=== PATIENT | male | born 1945 | race Caucasian/White ===

== ENCOUNTER 2019-05-17 05:39 | Inpatient (IN) | payer MEDICARE, OTHER ==
[~2019-05-17] VITALS: Ht 177.8 cm; Wt 87.0 kg
[~2019-05-17 05:39] MED LIST: AMLO5TAB4 PO; ASPI-496 PO; ASPI-650 PO; ATOR40TA78 PO; CARV-39 PO; ESCI20TA PO; LOSA1TAB25 PO; METF500T17 PO; OMEP20TA62 PO
[2019-05-17] MEDS ORDERED: LACTATED RINGERS 1,000 ML IV SCH (06:40)
[2019-05-17 06:43] VITALS: BP 125/75
[2019-05-17] MEDS ORDERED: MIDAZOLAM 1 MG/ML, 2ML ONE (07:03)
[2019-05-17] MEDS ORDERED: FENTANYL PF 250 MCG/5ML ONE (07:03)
[2019-05-17] MEDS ORDERED: THROMBIN (RECOMBINANT) 5,000 UNIT VIAL TP ONE (07:08)
[2019-05-17] MEDS ORDERED: BUPIVACAINE/PF 0.5% ONE (07:08)
[2019-05-17] MEDS ORDERED: EPINEPHRINE 1 MG/ML, 1ML ONE ×2 (07:08→08:47)
[2019-05-17] MEDS ORDERED: BACITRACIN 50,000 UNIT ONE (07:09)
[2019-05-17] MEDS ORDERED: WATER-INJECTION,STERILE 10 ML IV ONE (08:47)
[2019-05-17] MEDS ORDERED: PROPOFOL 10 MG/ML, 20ML ONE (08:47)
[2019-05-17] MEDS ORDERED: ROCURONIUM 10MG/ML,5ML ONE (08:47)
[2019-05-17] MEDS ORDERED: VASOPRESSIN 20 UNIT/ML, 1ML ONE (08:47)
[2019-05-17] MEDS ORDERED: DEXAMETHASONE 4 MG/ML, 1ML ONE (08:47)
[2019-05-17] MEDS ORDERED: LIDOCAINE-MPF 2% ,5ML ONE (08:47)
[2019-05-17] MEDS ORDERED: ONDANSETRON 2MG/ML, 2ML ONE (08:47)
[2019-05-17] MEDS ORDERED: PHENYLEPHRINE 10 MG/ML ONE (08:47)
[2019-05-17] MEDS ORDERED: CEFAZOLIN 1,000 MG ONE (08:47)
[2019-05-17] MEDS ORDERED: SUGAMMADEX 200 MG/2 ML IVPush ONE (08:56)
[2019-05-17] MEDS ORDERED: PROMETHAZINE 25 MG/ML, 1ML IV PRN (09:00)
[2019-05-17] MEDS ORDERED: MEPERIDINE/PF 25MG/ML,1ML IVPush PRN (09:00)
[2019-05-17] MEDS ORDERED: hydrALAzine 20 MG/ML, 1ML IV PRN (09:00)
[2019-05-17] MEDS ORDERED: HALOPERIDOL 5 MG/ML IV PRN (09:00)
[2019-05-17] MEDS ORDERED: HYDROmorphone 2 MG/ML, 1ML IVPush PRN (09:00)
[2019-05-17] MEDS ORDERED: OXYcodone 5 MG/5 ML ORAL.SOL UDC PO PRN (09:00)
[2019-05-17] MEDS ORDERED: FENTANYL PF 100 MCG/2ML IV PRN (09:00)
[2019-05-17] MEDS ORDERED: ACETAMINOPHEN 325 MG TABLET PO PRN (09:00)
[2019-05-17] MEDS ORDERED: METHOCARBAMOL 750 MG TABLET ONE (09:58)
[2019-05-17] MEDS ORDERED: METHOCARBAMOL 750 MG TABLET PO PRN ×2 (10:00→11:30)
[2019-05-17] MEDS ORDERED: OXYcodone 5 MG/5 ML ORAL.SOL UDC ONE (10:12)
[2019-05-17] MEDS ORDERED: OXYcodone/APAP 5/325MG TABLET PO PRN (11:30)
[2019-05-17] MEDS ORDERED: PROMETHAZINE 25 MG/ML, 1ML IM PRN (11:30)
[2019-05-17] MEDS ORDERED: HYDROmorphone 2 MG/ML, 1ML IM PRN ×2 (11:30→15:30)
[2019-05-17] MEDS ORDERED: ONDANSETRON 2MG/ML, 2ML IV PRN (11:30)
[2019-05-17] MEDS ORDERED: MAGNESIUM HYDROXIDE 8%, 30ML UDC PO PRN (11:30)
[2019-05-17] MEDS ORDERED: DIPHENHYDRAMINE 50 MG/ML, 1ML IVPush PRN (11:30)
[2019-05-17] MEDS ORDERED: BISACODYL 10 MG SUPP PR PRN (11:30)
[2019-05-17] MEDS ORDERED: LABETALOL 5MG/ML, 20ML IV PRN (11:30)
[2019-05-17] MEDS ORDERED: DIAZEPAM 5 MG/ML, 2ML IV PRN (11:30)
[2019-05-17] MEDS ORDERED: CYCLOBENZAPRINE 10 MG TABLET PO PRN (11:30)
[2019-05-17] MEDS ORDERED: DIAZEPAM 5 MG TABLET PO PRN (11:30)
[2019-05-17] MEDS: NS + 20MEQ KCL 1,000 ML IV SCH (11:48)
[2019-05-17] MEDS: INSULIN REGULAR 100 UNITS/ML, 3ML VIAL SQ-INSULIN SCH ×3 (11:48→21:00)
[2019-05-17 13:34] VITALS: BP 122/71
[2019-05-17] MEDS: CEFAZOLIN PMX 1GM/50ML 50 ML IVPB SCH ×2 (16:45→22:36)
[2019-05-17] MEDS: CARVEDILOL 25 MG TABLET PO SCH (18:10)
[2019-05-17 19:19] VITALS: BP 124/63
[2019-05-17] MEDS ORDERED: ATORVASTATIN 40 MG TABLET PO SCH (21:00)
[2019-05-17] MEDS ORDERED: metFORMIN 500 MG TABLET PO SCH (21:00)
[2019-05-17] MEDS ORDERED: AMLODIPINE 5 MG TABLET PO SCH (21:00)
[2019-05-18] MEDS: NS + 20MEQ KCL 1,000 ML IV SCH ×2 (01:08→14:34)
[2019-05-18 01:29] VITALS: BP 110/69
[2019-05-18] MEDS: CARVEDILOL 25 MG TABLET PO SCH (05:40)
[2019-05-18] MEDS ORDERED: OMEPRAZOLE 20 MG CAPSULE.DR PO SCH (06:00)
[2019-05-18 06:55] VITALS: BP 124/70
[2019-05-18] MEDS: INSULIN REGULAR 100 UNITS/ML, 3ML VIAL SQ-INSULIN SCH ×3 (07:00→16:07)
[2019-05-18] MEDS ORDERED: ESCITALOPRAM 10MG TABLET PO SCH (09:00)
[2019-05-18] MEDS ORDERED: HYDROCHLOROTHIAZIDE 12.5 MG CAPSULE PO SCH (09:00)
[2019-05-18] MEDS ORDERED: SENNA/DOCUSATE TABLET PO SCH (09:00)
[2019-05-18] MEDS ORDERED: LOSARTAN 50MG TABLET PO SCH (09:00)
[2019-05-18] MEDS ORDERED: HYDR-3237 PO (11:49)
[2019-05-18 12:37] VITALS: BP 123/71
[2019-05-18] MEDS: HYDROcodone/APAP 5/325 TABLET PO PRN ×2 (12:39→16:47)
[2019-05-18] MEDS ORDERED: TIZA4TAB9 PO (15:56)
[2019-05-18 15:59] VITALS: BP 114/69
== END 2019-05-18 17:12 | disposition home or self-care (01) | DRG 519 ==
LOC: OUT 05:39 → 4NE 11:02 → OUT 19:22 → 4NE 19:24 → DCLOUNGE 05-18 16:55
PROVIDERS: ADMIT Neurological Surgery; ATTEND Neurological Surgery
PROC: 01NB3ZZ Release Lumbar Nerve, Percutaneous Approach (ICD-10-PCS; 2019-05-17)
PROC: 00QT0ZZ Repair Spinal Meninges, Open Approach (ICD-10-PCS; 2019-05-17)
PROC: 00U20KZ Supplement Dura Mater with Nonautologous Tissue Substitute, Open Approach (ICD-10-PCS; 2019-05-17)
PROC: 00UT07Z Supplement Spinal Meninges with Autologous Tissue Substitute, Open Approach (ICD-10-PCS; 2019-05-17)
PROC: 00NY0ZZ Release Lumbar Spinal Cord, Open Approach (ICD-10-PCS; principal; 2019-05-17 07:30)
DX: M48.061 Spinal stenosis, lumbar region without neurogenic claudication (principal); G97.41 Accidental puncture or laceration of dura during a procedure; G96.0 Cerebrospinal fluid leak; M54.16 Radiculopathy, lumbar region; M43.16 Spondylolisthesis, lumbar region; I10 Essential (primary) hypertension; K21.9 Gastro-esophageal reflux disease without esophagitis; Z88.2 Allergy status to sulfonamides; Z88.5 Allergy status to narcotic agent; E11.9 Type 2 diabetes mellitus without complications; Y83.8 Other surgical procedures as the cause of abnormal reaction of the patient, or of later complication, without mention of misadventure at the time of the procedure; Y92.234 Operating room of hospital as the place of occurrence of the external cause
CPT/HCPCS: 72100; 82962; 93005; G0378; J0171; J0690; J1100; J2250; J2270; J2405; J2704; J3010; J3480; C1781; J2370; J7120

== ENCOUNTER 2020-11-01 12:41 | Day surgery (SDC) | payer MEDICARE ==
[~2020-11-01] VITALS: Ht 177.8 cm; Wt 84.0 kg
[~2020-11-01 12:41] MED LIST changes: +ASPI-1026 PO; -ASPI-650 PO; -ESCI20TA PO; +ESCI20TA8 PO; +HYDR-3237 PO; +TIZA4TAB9 PO
[2020-11-01 13:16] VITALS: BP 131/82
[2020-11-01] MEDS ORDERED: LIDOCAINE-MPF 1%, 2ML INFIL ONE (13:30)
[2020-11-01] MEDS ORDERED: CHLORHEXIDINE 15 ML UDC PO ONE (13:30)
[2020-11-01] MEDS ORDERED: LACTATED RINGERS 1,000 ML IV SCH (13:30)
[2020-11-01 14:01] LABS: ALBUMIN 3.9 g/dL (3.4-5.0); ANION GAP 3 mmol/L (5-15); CALCIUM 9.1 mg/dL (8.5-10.1); CHLORIDE 113 mmol/L (98-107)
[2020-11-01 14:05] LABS: ALANINE AMINOTRANSFERASE 30 U/L (12-78); ALKALINE PHOSPHATASE 72 U/L (45-117); BILIRUBIN,TOTAL 0.9 mg/dL (0.2-1.0); CREATININE 0.68 mg/dL (0.7-1.3); TOTAL PROTEIN 6.8 g/dL (6.4-8.2)
[2020-11-01] MEDS ORDERED: FENTANYL PF 100 MCG/2ML ONE ×2 (14:08→15:38)
[2020-11-01] MEDS ORDERED: LIDOCAINE/PF 1%, 30ML ONE ×2 (14:13→14:39)
[2020-11-01] MEDS ORDERED: EPINEPHRINE 1 MG/ML, 1ML ONE ×2 (14:13→14:40)
[2020-11-01] MEDS ORDERED: PHENYLEPHRINE 10 MG/ML ONE (14:33)
[2020-11-01] MEDS ORDERED: EPHEDRINE 50 MG/ML, 1ML ONE (14:33)
[2020-11-01] MEDS ORDERED: methylPREDNISolone *ACETATE* 40 MG/ML ONE (14:39)
[2020-11-01] MEDS ORDERED: CLINDAMYCIN 150 MG/ML, 6ML ONE (14:48)
[2020-11-01] MEDS ORDERED: PROPOFOL 10 MG/ML, 20ML ONE (15:29)
[2020-11-01] MEDS ORDERED: GLYCOPYRROLATE 0.2MG/1ML, 5ML ONE (15:29)
[2020-11-01] MEDS ORDERED: ROCURONIUM 10MG/ML,5ML ONE (15:29)
[2020-11-01] MEDS ORDERED: NEOSTIGMINE 1 MG/ML, 10ML ONE (15:29)
[2020-11-01] MEDS ORDERED: ONDANSETRON 2MG/ML, 2ML ONE (15:29)
[2020-11-01] MEDS ORDERED: SUCCINYLCHOLINE 20 MG/ML, 10ML ONE (15:29)
[2020-11-01] MEDS ORDERED: CEFAZOLIN 1,000 MG ONE (15:29)
[2020-11-01] MEDS ORDERED: DEXAMETHASONE 4 MG/ML, 1ML ONE (15:29)
[2020-11-01] MEDS ORDERED: hydrALAzine 20 MG/ML, 1ML IV PRN (15:30)
[2020-11-01] MEDS ORDERED: LORazepam 2 MG/ML, 1ML IVPush PRN (15:30)
[2020-11-01] MEDS ORDERED: ACETAMINOPHEN 325 MG TABLET PO PRN (15:30)
[2020-11-01] MEDS ORDERED: ONDANSETRON 2MG/ML, 2ML IVPush PRN (15:30)
[2020-11-01] MEDS ORDERED: METHOCARBAMOL 1,000 MG in DEXTROSE 5% 100 ML IV PRN (15:30)
[2020-11-01] MEDS ORDERED: LABETALOL 5MG/ML, 20ML IV PRN (15:30)
[2020-11-01] MEDS ORDERED: METOPROLOL 1 MG/ML, 5ML IV PRN (15:30)
[2020-11-01] MEDS ORDERED: PROMETHAZINE 25 MG/ML, 1ML IVPush PRN (15:30)
[2020-11-01] MEDS ORDERED: OXYcodone 5 MG/5 ML ORAL.SOL UDC PO PRN (15:30)
[2020-11-01] MEDS ORDERED: FENTANYL PF 100 MCG/2ML IV PRN (15:30)
[2020-11-01] MEDS ORDERED: HYDROmorphone 1 MG/ML, 1ML INJ IVPush PRN (15:30)
[2020-11-01] MEDS ORDERED: PROMETHAZINE 25 MG SUPP PR PRN (15:30)
== END 2020-11-01 18:35 | disposition home or self-care (01) ==
LOC: OUT 12:41
PROVIDERS: ATTEND Orthopaedic Surgery
DX: S46.011A Strain of muscle(s) and tendon(s) of the rotator cuff of right shoulder, initial encounter (principal); S43.431A Superior glenoid labrum lesion of right shoulder, initial encounter; M75.41 Impingement syndrome of right shoulder; M65.811 Other synovitis and tenosynovitis, right shoulder; G89.18 Other acute postprocedural pain; I10 Essential (primary) hypertension; I25.10 Atherosclerotic heart disease of native coronary artery without angina pectoris; Z79.84 Long term (current) use of oral hypoglycemic drugs; Z79.899 Other long term (current) drug therapy; Z88.2 Allergy status to sulfonamides; Z90.79 Acquired absence of other genital organ(s); Z95.1 Presence of aortocoronary bypass graft; X50.1XXA Overexertion from prolonged static or awkward postures, initial encounter; Y93.89 Activity, other specified; Y92.89 Other specified places as the place of occurrence of the external cause; Y99.8 Other external cause status
CPT/HCPCS: 23430; 29823; 29826; 29827; 64415; 80053; 82962; C1713; J0171; J0330; J0690; J1030; J1100; J2370; J2405; J2704; J2710; J3010; J7120